=== PATIENT | female | born 1945 | race Caucasian/White ===

== ENCOUNTER 2019-11-11 23:18 | Inpatient (IN) | payer MEDICARE ==
[~2019-11-11] VITALS: Ht 167.6 cm; Wt 77.1 kg
[2019-11-12] MEDS ORDERED: OXYMETAZOLINE HCL NASAL SPRAY 30 ML BOTTLE NS ONE ×2 (00:14)
--- NOTE | 2019-11-12 00:47 | NUR ---
AT BEDSIDE PERFORMING RHINO ROCKETS ON PATIENT.
--- NOTE | 2019-11-12 00:52 | NUR ---
PT CAME TO ER BED 1 C/O BLEEDING FROM THE NOSE. PT STATES THAT SHE HAS NOSEBLEED "EVERY ONE IN A WHILE". AAOX4. NO SOB. NOT IN ANY DISTRESS. PRESSURE PLACED ON THE BRIDGE OF THE NOSE CONNECTED TO MONITOR.
[2019-11-12] MEDS ORDERED: SILVER NITRATE APPLICATOR 1 EA BOX ONE (01:02)
[2019-11-12] MEDS ORDERED: ACETAMINOPHEN 325 MG TABLET PO ONE (01:30)
[2019-11-12] MEDS ORDERED: LORAZEPAM 1 MG TABLET PO ONE (01:30)
[2019-11-12] MEDS ORDERED: ACETAMINOPHEN 325 MG TABLET ONE (01:39)
[2019-11-12] MEDS ORDERED: LORAZEPAM 1 MG TABLET ONE (01:39)
[2019-11-12 01:41] LABS: BASOPHILS # (AUTO) 0.2 /CMM (0.0-0.2); BASOPHILS % (AUTO) 1.7 % (0.0-2.0); EOSINOPHILS % (AUTO) 0.3 % (0.0-6.0); HEMATOCRIT 43 % (33-45); HEMOGLOBIN 13.8 g/dL (11.5-14.8); LYMPHOCYTES # (AUTO) 0.8 /CMM (0.8-4.8); LYMPHOCYTES % (AUTO) 6.3 % (20.0-44.0); MEAN CORPUSCULAR HGB CONC 32 g/dl (31.0-36.0); MEAN CORPUSCULAR VOLUME 90 fL (82-100); MONOCYTES # (AUTO) 0.4 /CMM (0.1-1.30); NEUTROPHILS # (AUTO) 11.7 /CMM (1.8-8.9); NEUTROPHILS % (AUTO) 88.7 % (43.0-81.0); PLATELET COUNT (AUTO) 306 /CMM (150-450); RED BLOOD CELL COUNT(AUTO) 4.73 MIL/uL (4.0-5.2); WHITE BLOOD COUNT (AUTO) 13.1 K/uL (4.3-11.0)
[2019-11-12 01:57] LABS: CALCIUM, SERUM 9.5 mg/dL (8.5-10.1); CREATININE 0.8 mg/dL (0.6-1.3); POTASSIUM 3.1 mmol/L (3.5-5.1)
[2019-11-12 02:03] LABS: ALBUMIN 3.9 g/dL (3.4-5.0); BILIRUBIN,TOTAL 0.3 mg/dL (0.2-1.0); TOTAL PROTEIN, SERUM 7.9 g/dL (6.4-8.2)
[2019-11-12] MEDS ORDERED: MAGNESIUM HYDROXIDE 30 ML UDC PO PRN (02:30)
[2019-11-12] MEDS ORDERED: MAG HYDROX/AL HYDROX/SIMETH 30 ML UDC PO PRN (02:30)
[2019-11-12] MEDS ORDERED: Z GUARD REMEDY 2 OZ OINT TP PRN (02:30)
[2019-11-12] MEDS ORDERED: ONDANSETRON HCL/PF 4 MG/2 ML VIAL IVP PRN (02:30)
--- NOTE | 2019-11-12 03:18 | NUR ---
Analy padilla in [facility] - 11/12/19 at 0319 by IMAN PATIENT NO LONGER BLEEDING.
--- NOTE | 2019-11-12 03:31 | NUR ---
REPORT GIVEN TO ARIES HARLEY.
[2019-11-12 04:00] VITALS: BP 122/86
--- NOTE | 2019-11-12 04:00 | NUR ---
MS RN NOTE: RECEIVED PATIENT FROM ER, NO ACUTE DISTRESS NOTED. PATIENT RESTING IN BED, BREATHING EVEN AND UNLABORED, NO SOB NOTED. IV TO RAC IN PLACE. RHINO ROCKET TO LEFT NOSTRIL IN PLACE. NO NOSE BLEED NOTED AT THIS TIME. ORIENTED PATIENT ROOM AND USE OF CALL LIGHT. BED LOCKED AND IN LOWEST POSITION, CALL LIGHT IN REACH. WILL CONTINUE TO MONITOR.
[2019-11-12] MEDS ORDERED: HYDR12.55 PO (04:09)
[2019-11-12] MEDS ORDERED: AMLO5TAB4 PO (04:09)
[2019-11-12] MEDS ORDERED: ALBU18HF2 INH (04:09)
[2019-11-12] MEDS ORDERED: MORPHINE SULFATE INJ 2 MG/ML DISP.SYRIN IV PRN (05:45)
[2019-11-12] MEDS ORDERED: POTASSIUM CHLORIDE 10 MEQ/50 ML PREMIXED IVPB FOR PERIPHERAL LINE IV ONE (06:30)
[2019-11-12] MEDS ORDERED: POTASSIUM CL. PREMIX PERIPHER. 50 ML IV SCH (06:30)
--- NOTE | 2019-11-12 06:30 | NUR ---
MS RN NOTE: PATIENT COMPLAINS OF PAIN TO NOSE, CALLED FIREFIGHTER MD AND RECEIVED NEW ORDERS FOR MORPHINE 1MG IV EVERY 6 HOURS NEEDED. ALSO RECEIVED ORDERS FOR KCL 40MEQ IV. ORDERS NOTED AND CARRIED OUT. MORPHINE 1MG IV GIVEN PER MD ORDER. BED LOCKED AND IN LOWEST POSITION, CALL LIGHT IN REACH. WILL ENDORSE TO DAY NURSE TO CONTINUE WITH PLAN OF CARE.
[2019-11-12 06:51] LABS: BASOPHILS % (AUTO) 0.3 % (0.0-2.0); EOSINOPHILS % (AUTO) 0.1 % (0.0-6.0); HEMATOCRIT 38 % (33-45); HEMOGLOBIN 12.7 g/dL (11.5-14.8); LYMPHOCYTES # (AUTO) 1.5 /CMM (0.8-4.8); LYMPHOCYTES % (AUTO) 13.7 % (20.0-44.0); MEAN CORPUSCULAR HGB CONC 33 g/dl (31.0-36.0); MEAN CORPUSCULAR VOLUME 90 fL (82-100); MONOCYTES # (AUTO) 0.5 /CMM (0.1-1.30); MONOCYTES % (AUTO) 4.2 % (2.0-12.0); NEUTROPHILS % (AUTO) 81.7 % (43.0-81.0); PLATELET COUNT (AUTO) 251 /CMM (150-450); RED BLOOD CELL COUNT(AUTO) 4.29 MIL/uL (4.0-5.2); WHITE BLOOD COUNT (AUTO) 11.1 K/uL (4.3-11.0)
--- NOTE | 2019-11-12 07:15 | NUR ---
RN OPENING NOTE PT WAS RECEIVED IN BED AT LOWEST AND LOCKED WITH SIDE RAILS UP X2, A/O X4 BREATHING EVEN AND UNLABORED WITH NO SOB NOTED OR COMPLAINTS OF ANY PAIN, NOTED TO HAVE RHINO ROCKET TO LEFT NOSTRIL, AMBULATORY, IV IS PATENT AND INTACT, SAFETY PRECAUTIONS IN PLACE, CALL LIGHT IN REACH, WILL MONITOR ACCORDINGLY
[2019-11-12 07:36] LABS: ALBUMIN 3.6 g/dL (3.4-5.0); BILIRUBIN,TOTAL 0.4 mg/dL (0.2-1.0); CALCIUM, SERUM 9.5 mg/dL (8.5-10.1); CREATININE 0.7 mg/dL (0.6-1.3); MAGNESIUM 1.9 mg/dL (1.8-2.4); POTASSIUM 3.6 mmol/L (3.5-5.1); TOTAL PROTEIN, SERUM 7.5 g/dL (6.4-8.2)
[2019-11-12 08:00] VITALS: BP 123/70
[2019-11-12] MEDS: AMLODIPINE BESYLATE 5 MG TABLET PO SCH (08:11)
--- NOTE | 2019-11-12 08:24 | NUR ---
RN NOTE PER DR. GUTIERREZ CHANGE MORPHINE DOSE TO 2MG Q4H PRN AND TO D/C IV POTASSIUM AND JUST GIVE 40 MEQ POTASSIUM PO ONCE INSTEAD SINCE POTASSIUM LEVEL IS NOW 3.6, WILL IMPLEMENT AND MONITOR ACCORDINGLY
[2019-11-12] MEDS ORDERED: POTASSIUM CHLORIDE 20 MEQ TAB.PRT.SR PO ONE (08:30)
[2019-11-12] MEDS: MORPHINE SULFATE INJ 2 MG/ML DISP.SYRIN IV PRN ×3 (08:49→21:44)
[2019-11-12] MEDS ORDERED: HYDROCHLOROTHIAZIDE 25 MG TABLET PO SCH (09:00)
[2019-11-12] MEDS ORDERED: AMLODIPINE BESYLATE 5 MG TABLET PO SCH (11:00)
[2019-11-12] MEDS ORDERED: ALBUTEROL FS 2.5 MG/0.5 ML VIAL.NEB NEB PRN (13:30)
[2019-11-12 16:00] VITALS: BP 137/84
[2019-11-12] MEDS: ACETAMINOPHEN 325 MG TABLET PO PRN (17:40)
--- NOTE | 2019-11-12 18:13 | NUR ---
RN CLOSING NOTE PT IN BED AT LOWEST AND LOCKED WITH SIDE RAILS UP X2, A/O X4 BREATHING EVEN AND UNLABORED WITH NO PAIN OR DISTRESS AT THIS TIME, IV IS PATENT AND INTACT, SAFETY PRECAUTIONS IN PLACE, CALL LIGHT IN REACH, ALL NEEDS ATTENDED TO, WILL ENDORSE TO NIGHT RN FOR CHERRI
[2019-11-12 20:00] VITALS: BP 137/84
[2019-11-13] MEDS: MORPHINE SULFATE INJ 2 MG/ML DISP.SYRIN IV PRN ×3 (06:06→16:09)
--- NOTE | 2019-11-13 06:28 | NUR ---
MS RN NOTES AWAKE & RESPONSIVE. NOT IN ANY DISTRESS. NO SOB NOTED. DENIES ANY PAIN OR DISCOMFORT AT THIS TIME. WITH IV-HL PATENT & INTACT. MONITORED ACCORDINGLY. CALL LIGHT WITHIN REACH. BED IN LOWEST POSITION. SR UP X 2 FOR SAFETY. WILL ENDORSE TO NEXT SHIFT.
[2019-11-13 06:30] LABS: ALBUMIN 3.7 g/dL (3.4-5.0); BILIRUBIN,TOTAL 0.6 mg/dL (0.2-1.0); CALCIUM, SERUM 9.9 mg/dL (8.5-10.1); CREATININE 0.7 mg/dL (0.6-1.3); MAGNESIUM 1.8 mg/dL (1.8-2.4); POTASSIUM 3.9 mmol/L (3.5-5.1); TOTAL PROTEIN, SERUM 7.7 g/dL (6.4-8.2)
[2019-11-13 06:34] LABS: BASOPHILS # (AUTO) 0.1 /CMM (0.0-0.2); BASOPHILS % (AUTO) 0.5 % (0.0-2.0); EOSINOPHILS % (AUTO) 0.3 % (0.0-6.0); HEMATOCRIT 40 % (33-45); HEMOGLOBIN 13.1 g/dL (11.5-14.8); LYMPHOCYTES # (AUTO) 3.7 /CMM (0.8-4.8); LYMPHOCYTES % (AUTO) 27.9 % (20.0-44.0); MEAN CORPUSCULAR HGB CONC 33 g/dl (31.0-36.0); MEAN CORPUSCULAR VOLUME 90 fL (82-100); MONOCYTES % (AUTO) 7.3 % (2.0-12.0); NEUTROPHILS # (AUTO) 8.4 /CMM (1.8-8.9); PLATELET COUNT (AUTO) 249 /CMM (150-450); RED BLOOD CELL COUNT(AUTO) 4.42 MIL/uL (4.0-5.2); WHITE BLOOD COUNT (AUTO) 13.1 K/uL (4.3-11.0)
--- NOTE | 2019-11-13 07:33 | NUR ---
MS RN OPENING NOTES RECEIVED PT AWAKE IN BED IN NO ACUTE SIGNS OF DISTRESS. A/O X4. ABLE TO MAKE NEEDS KNOWN, DENIES PAIN OR ANY DISCOMFORTS AT THIS TIME. RHINO ROCKET ON LEFT NOSTRIL IN PLACE WITH NO ACTIVE BLEEDING NOTED. ON ROOM AIR, BREATHING EVEN AND UNLABORED. IV ACCESS ON RAC 18 GAUGE IV SALINE LOCK INTACT, PATENT AND FLUSHES WELL. BED LOCKED AND IN LOWEST POSITION WITH SIDE RAILS UP X2. CALL LIGHT WITHIN REACH, WILL CONTINUE TO MONITOR.
[2019-11-13 08:00] VITALS: BP 137/83
[2019-11-13] MEDS: AMLODIPINE BESYLATE 5 MG TABLET PO SCH (08:37)
[2019-11-13] MEDS ORDERED: HYDROCHLOROTHIAZIDE 25 MG TABLET PO SCH (09:00)
--- NOTE | 2019-11-13 11:59 | NUR ---
RN NOTES PT FOR DISCHARGE TODAY AND DECIDED TO GO HOME WITH HER RHINO ROCKET ON LEFT NOSTRIL. SHE SAID THAT SHE WILL JUST FOLLOW-UP WITH HER PCP THIS WEEK. DR GUTIERREZ MADE AWARE.
[2019-11-13 16:00] VITALS: BP 142/85
[2019-11-13] MEDS: ACETAMINOPHEN 325 MG TABLET PO PRN (17:50)
--- NOTE | 2019-11-13 18:13 | NUR ---
DISCHARGED NOTES PT DISCHARGED HOME IN STABLE CONDITION. A/O X4 , SAME ABLE TO MAKE NEEDS KNOWN. V/S STABLE. SKIN IS INTACT. RHINO ROCKET ON LEFT NOSTRIL IN PLACE, NO ACTIVE BLEEDING NOTED THROUGHOUT THE DAY. ALL BELONGINGS ACCOUNTED FOR AND SIGNED FORM. IV ACCESS ON RAC REMOVED WITH SMALL BLEEDING NOTED, DRY PRESSURE DRESSING APPLIED AND TAPED. NAME ARMBAND REMOVED. [facility] ON 11/15/2019 AT 1300 GIVEN TO PT. HEALTH /DISCHARGE INSTRUCTIONS GIVEN TO PT AND VERBALIZED UNDERSTANDING. PT LEFT UNIT AT 1810 VIA WHEELCHAIR ACCOMPANIED BY ME AND PT'S FRIEND NAMED LARS EARLY. AND CHARGE NURSE AWARE OF DISCHARGE.
== END 2019-11-13 18:00 | disposition home or self-care (01) | DRG 301 ==
LOC: ER 23:22 → TELE 11-12 03:01 → MED 11-12 04:17
PROVIDERS: ADMIT Internal Medicine; ATTEND Internal Medicine
DX: Q27.30 Arteriovenous malformation, site unspecified (principal); R04.0 Epistaxis; I10 Essential (primary) hypertension; Z79.51 Long term (current) use of inhaled steroids; Z79.899 Other long term (current) drug therapy; E87.6 Hypokalemia
CPT/HCPCS: 36415; 80053-TC; 83735-TC; 84100-TC; 85025-TC; 85730-TC; 87081-TC; G0378; J2270; J3480

== ENCOUNTER 2024-11-11 18:50 | Emergency (ER) | payer BC ==
[~2024-11-11] VITALS: Ht 167.6 cm; Wt 73.5 kg
[~2024-11-11 18:50] MED LIST: ALBU18HF2 INH; AMLO5TAB4 PO; HYDR12.55 PO
[2024-11-11 18:53] VITALS: TEMP 98.4
[2024-11-11] MEDS ORDERED: predniSONE 20 MG TABLET ONE (19:16)
[2024-11-11] MEDS: predniSONE 20 MG TABLET PO ONE (19:19)
[2024-11-11 19:50] VITALS: O2SAT 94; O2SAT 97
[2024-11-11] MEDS: ALBUTEROL FS 2.5 MG/3 ML VIAL.NEB NEB ONE (19:50)
[2024-11-11] MEDS: IPRATROPIUM NEB FS 0.5 MG/2.5 ML AMPUL.NEB NEB ONE (19:50)
[2024-11-11] MEDS ORDERED: IPRATROPIUM NEB FS 0.5 MG/2.5 ML AMPUL.NEB ONE (19:52)
[2024-11-11] MEDS ORDERED: ALBUTEROL FS 2.5 MG/3 ML VIAL.NEB ONE (19:52)
[2024-11-11 20:51] VITALS: O2SAT 100
[2024-11-11] MEDS ORDERED: PRED20TA PO (21:01)
[2024-11-11] MEDS ORDERED: ALBU18HF2 INH (21:01)
[2024-11-11 22:45] VITALS: BP 131/78; O2SAT 99
== END 2024-11-11 22:40 | disposition home or self-care (01) ==
LOC: ER 19:09
DX: J45.901 Unspecified asthma with (acute) exacerbation (principal); I10 Essential (primary) hypertension; Z79.52 Long term (current) use of systemic steroids; Z79.899 Other long term (current) drug therapy
CPT/HCPCS: 94644; 99285; 71045; J7512